=== PATIENT | male | born 2000 | race Caucasian/White ===

== ENCOUNTER 2019-04-05 04:00 | Emergency (ER) | payer MEDICARE ==
[~2019-04-05] VITALS: Ht 4 cm; Wt 83.5 kg
[2019-04-05 04:10] VITALS: BP 126/87
[2019-04-05] MEDS ORDERED: KETOROLAC 15 MG/ML VIAL. IM ONE (04:30)
[2019-04-05] MEDS ORDERED: ORPHENADRINE CITRATE 60 MG/2 ML VIAL. IM ONE (04:30)
[2019-04-05] MEDS ORDERED: ORPH-16 PO (04:31)
[2019-04-05] MEDS ORDERED: MELO7.5T29 PO (04:31)
--- NOTE | 2019-04-05 04:31 | PHYS DOC ---
Past History Additional Past Medical Histor: low testosterone Smoking: Non-smoker Alcohol Use: None Drug Use: None Adult General Chief Complaint Chief Complaint: BACK PAIN - NO INJURY HPI HPI Patient is a 19-year-old male presents with back pain that started 2 days ago. 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 He has had no improvement with treatment by a chiropractor 2 times since the onset of the pain and no significant improvement with muscle relaxers prescribed by his primary care physician yesterday. He was able to get some sleep with the muscle relaxers. No loss of bowel or bladder control. In his worse with movement. Patient denies any fever. No history of cancer. No use of injectable drugs. Pain is moderate to severe.[] Review of Systems Review of Systems Constitutional: Denies fever or chills [] Eyes: Denies change in visual acuity, redness, or eye pain [] HENT: Denies nasal congestion or sore throat [] Respiratory: Denies cough or shortness of breath [] Cardiovascular: No chest pain or palpitations[] GI: Denies abdominal pain, nausea, vomiting, bloody stools or diarrhea [] : Denies dysuria or hematuria [] Musculoskeletal: See history of present illness[] Integument: Denies rash or skin lesions [] Neurologic: Denies headache, focal weakness or sensory changes [] Endocrine: Denies polyuria or polydipsia [] All other systems were reviewed and found to be within normal limits, except as documented in this note. Physical Exam Physical Exam Constitutional: Well developed, well nourished, mild to moderate discomfort, non-toxic appearance. [] HENT: Normocephalic, atraumatic, bilateral external ears normal, oropharynx moist, no oral exudates, nose normal. [] Eyes: PERRLA, EOMI, conjunctiva normal, no discharge. [] Neck: Normal range of motion, no tenderness, supple, no stridor. [] Cardiovascular:Heart rate regular rhythm, no murmur [] Lungs & Thorax: Bilateral breath sounds clear to auscultation [] Abdomen: Bowel sounds normal, soft, no tenderness, no masses, no pulsatile m asses. [] Skin: Warm, dry, no erythema, no rash. [] Back: Tenderness to palpation in the upper lumbar/low thoracic paraspinal musculature. Spasm is present. This re-creates the pain. Decreased active range of motion secondary to pain and forward bending. Normal gait. no CVA tenderness. [] Extremities: No tenderness, no cyanosis, no clubbing, ROM intact, no edema. [] Neurologic: Alert and oriented X 3, normal motor function, normal sensory function, no focal deficits noted. [] Psychologic: Affect normal, judgement normal, mood normal. [] EKG EKG [] Radiology/Procedures Radiology/Procedures [] Course & Med Decision Making Course & Med Decision Making Pertinent Labs and Imaging studies reviewed. (See chart for details) Medical decision making: Patient with back pain that appears to be muscular in nature. Imaging is not indicated at this time given the lack of red flag features. There is no evidence of cauda equina syndrome. No evidence of meningitis or encephalitis.[] Dragon Disclaimer Dragon Disclaimer This electronic medical record was generated, in whole or in part, using a voice recognition dictation system. Departure Departure: Impression: Primary Impression: Acute back pain Disposition: HOME, SELF-CARE Condition: IMPROVED Patient Instructions: Low Back Strain with [facility] Additional Instructions: Follow-up with your regular doctor in 2 days. Return to the ER if worsening pain, loss of bowel or bladder control, or any other concerns. Scripts Orphenadrine Citrate (ORPHENADRINE CITRATE) 100 Mg Tablet.er 100 MG PO BID for BACK PAIN, #20 TAB.SR Prov: KAREL SAUNDERS DO 04/05/19 Meloxicam (MELOXICAM) 7.5 Mg Tablet 7.5 MG PO DAILY for PAIN, #20 TAB Prov: KAREL SAUNDERS DO 04/05/19 Problem Qualifiers Primary Impression: Acute back pain Back pain location: back pain in unspecified location Back pain laterality: bilateral Qualified Codes: M54.9 - Dorsalgia, unspecified KAREL SAUNDERS DO Apr 05, 2019 04:31
[2019-04-05] MEDS ORDERED: ORPHENADRINE CITRATE 60 MG/2 ML VIAL. ONE (04:42)
[2019-04-05] MEDS ORDERED: KETOROLAC 15 MG/ML VIAL. ONE (04:42)
[2019-04-05] MEDS ORDERED: OMEP20TA63 PO (05:56)
[2019-04-05] MEDS ORDERED: MONT10TA80 PO (05:56)
[2019-04-05] MEDS ORDERED: ALPR0.25 PO (05:56)
[2019-04-05] MEDS ORDERED: TEST200V3 IM ×2 (05:56→05:57)
[2019-04-05] MEDS ORDERED: CETI10TA22 PO (05:56)
[2019-04-05] MEDS ORDERED: luvox PO (05:56)
== END 2019-04-05 04:55 | disposition home or self-care (01) ==
LOC: ER 04:00
DX: M54.89 Other dorsalgia (principal)
CPT/HCPCS: 96372; 99284; J1885; J2360